=== PATIENT | male | born 1965 | race Caucasian/White ===

== ENCOUNTER 2022-04-29 03:02 | Emergency (ER) | payer SELFPAY ==
[2022-04-29 03:05] VITALS: BP 154/88; PULSE 123; PULSE 124; RESP 19; RESP 24; TEMP 36.6; O2SAT 87
--- NOTE | 2022-04-29 03:15 | ED.GENADULT ---
HPI - General Adult General Chief complaint: Overdose Stated complaint: OD Time Seen by Provider: 04/29/22 03:05 Source: patient, EMS and RN notes reviewed Mode of arrival: EMS History of Present Illness HPI narrative: This is a 56 year old male with history of fentanyl abuse who presents for evaluation of possible overdose. EMS states they were called to patient's house at 10 pm last night due to unresponsiveness and he was given narcan. EMS was called again just prior to arrival, and it is reported that patient had agonal respirations. PAtient was given narcan and he became responsive. Patient states he has not used fentanyl since December and he denies any opioid use today. He is complaining of intermittent dizziness. He states 1 week ago he hit his head in shelter, and tonight he passed out hitting his head. He is also complaining of shortness of breath today. He had chils and sweats last night so he thinks he had a fever. He is also having lower back pain. He denies nausea, vomiting, chest pain, cough or abdominal pain. He states he has only taking tylenol and aspirin today. He was found to have oxygen saturation 87% on room air on arrival to ER. Related Data Allergies Allergy/AdvReac Type Severity Reaction Status Date / Time No Known Allergies Allergy Unverified 05/26/16 16:07 Review of Systems Review of Systems: All systems reviewed & are unremarkable except as noted in HPI and below Constitutional: Constitutional: Reports fatigue and Reports fever(s) ENT: Denies nasal congestion and Denies sore throat Cardiovascular: Cardiovascular: Denies chest pain and Denies rapid heart rate Respiratory: Respiratory: Denies chest congestion, Denies cough and Reports dyspnea Gastrointestinal: Gastrointestinal: Denies abdominal pain, Denies nausea and Denies vomiting Musculoskeletal: Musculoskeletal: Reports back pain Neurologic: Reports dizziness and Denies headache(s) [facility] Past Medical History Medical History (Updated 04/29/22 @ 03:52 by Jaymie Meza MD) Patient denies medical problems Social History Social History (Updated 04/29/22 @ 03:17 by Jaymie Meza MD) Smoking packs per day: 1 Smoking cigarettes per day: 20.0 Smoking status: Current every day smoker Alcohol intake: current Substance use: current Last use: he states he has not used fentanyl since December 2021 Exam Const: General: no acute distress and alert Nutritional Appearance: well nourished Orientation/consciousness: patient oriented x3 Limitations: no limitations HENMT: Head: normal to inspection Ears: external ears normal Mouth: Yes Normal oral and palatal mucosa present Eyes: Conjunctivae: conjunctivae normal Pupils: Equal, round and reactive pupils present EOM: EOMs intact bilaterally Neck: Neck: normal visual inspection Chest: Chest palpation & inspection: normal inspection of the chest Resp: Effort & Inspection: normal respiratory effort Auscultation: clear to auscultation bilaterally Cardio: Rate: tachycardic Rhythm: regular rhythm Heart sounds: no murmurs GI: GI Palp: Yes Soft to palpation, No Tenderness to palpation present (GI), No Guarding due to palpation present (GI) and No Rigid due to palpation Auscultation: normal bowel sounds Skin: General skin exam: normal color Rashes: no rashes Wounds: no wounds Neuro: General: patient oriented x3, moves all extremities and CN's II-XI intact bilaterally Cranial nerves: Yes Nystagmus not present Speech: normal speech Extrem: General: normal to inspection Psych: Mental Status: mental status grossly normal Affect: normal affect Attitude: cooperative Course Reevaluation(s) Reevaluation #1: Patient refused to have any labs or imaging performed. I spoke with patient and explained that he was found have low oxygen saturation and he had to receive narcan to wake him up. I explained that he needs to stay for evaluation. He states he does not like [facility] and
--- NOTE | 2022-04-29 03:27 | PC.NURSE ---
Refusing all treatment at this time. Refusing lab work. Dr Meza notified.
--- NOTE | 2022-04-29 03:27 | PC.NURSE ---
Came to ED via EMS after their second trip to home. Per EMS report barely breathing upon arrival to home at 2200. Received a intranasal dose of Narcan and IV Narcan first time. Then refused treatment. Upon EMS arrival agonal breathing and received 2 doses of IV Narcan
== END 2022-04-29 03:50 | disposition left against medical advice (07) ==
LOC: ANHED 03:23
PROVIDERS: Emergency Provider General Practice
DX: T50.901A Poisoning by unspecified drugs, medicaments and biological substances, accidental (unintentional), initial encounter (principal); R42 Dizziness and giddiness; R09.02 Hypoxemia; S09.90XA Unspecified injury of head, initial encounter; F17.210 Nicotine dependence, cigarettes, uncomplicated; X58.XXXA Exposure to other specified factors, initial encounter
CPT/HCPCS: 36600; 99284